=== PATIENT | male | born 1985 | race American Indian/Alaskan Native ===

== ENCOUNTER 2020-05-01 18:58 | Emergency (ER) | payer OTHER ==
[2020-05-02] MEDS ORDERED: SUCRALFATE 1 GM/10 ML ORAL LIQD PO ONE (07:07)
[2020-05-02] MEDS ORDERED: FAMOTIDINE 20 MG TAB PO ONE (07:07)
[2020-05-02] MEDS ORDERED: ACETAMINOPHEN 325 MG TAB PO ONE (07:07)
--- NOTE | 2020-05-02 07:08 | Emergency Department Report ---
ED Chest Pain HPI - General Chief Complaint: Chest Pain Stated Complaint: TIGHTNESS LEFT JAW, CHEST PAIN PUI?: No Time Seen by Provider: 05/02/20 06:32 Source: patient, RN notes reviewed, old records reviewed Mode of arrival: Ambulatory Limitations: No Limitations - History of Present Illness Initial Comments: Primary care doctor: [facility] gutierrez The patient is a 35-year-old gentleman. I have evaluated this patient in the past. He denies chronic medical conditions. I have evaluated this patient in the past for chest pain. Patient has been having chest pain on and off since February. The patient presents to the ER today with a complaint of recurrent chest pain. The chest pain is central, right-sided and left-sided. It did not radiate to the back, arms or neck. To me, the patient denies exertional shortness of breath, vomiting, diaphoresis, DVT and pulmonary embolism risk factors. He reports that over the past week he has been having this intermittent discomfort. However, he has been having this discomfort subacutely since February. This particular episode started at 630 yesterday evening, and has been intermitt ent. However, he has been having this pain basically every day. He denies headache, neck pain, abdominal pain, vomiting, diaphoresis, urinary symptoms, vomiting blood, defecating blood, extremity weakness and or numbness. In the emergency room, he was treated supportively and symptomatically felt improved. He states that he has followed up with [facility], however, they have not referred him to an outpatient cake former. He did a video evaluation last night with [facility] physician, and was instructed to come to the ER for further evaluation MD Complaint: chest pain -: Gradual, hour(s), days(s), week(s) Onset: during rest Pain Location: substernal, left chest, right chest Pain Radiation: none Severity scale (0 -10): 3 Quality: aching Consistency: intermittent Improves With: nothing Worsens With: nothing Aspirin use within the Past 7 Days: (0) No - Related Data Previous Rx's Medication Instructions Recorded Last Taken Type Acetaminophen [Non-Aspirin Extra 500 mg PO Q6HR PRN #30 tablet 05/02/20 Unknown Rx Strength] Famotidine [Pepcid] 20 mg PO BID #60 tablet 05/02/20 Unknown Rx Allergies Allergy/AdvReac Type Severity Reaction Status Date / Time No Known Allergies Allergy Unverified 02/20/20 00:19 Heart Score - HEART Score History: Slightly suspicious EKG: Normal Age: < 45 Risk factors: 1-2 risk factors Troponin: < normal limit HEART Score: 1 - Critical Actions Critical Actions: 0-3 pts:0.9-1.7%risk of adverse cardiac event.Candidate for discharge ED Review of Systems ROS: Stated complaint: TIGHTNESS LEFT JAW, CHEST PAIN Other details as noted in HPI Constitutional: denies: fever, malaise, weakness Eyes: denies: eye discharge ENT: denies: congestion Respiratory: denies: shortness of breath Cardiovascular: chest pain Gastrointestinal: abdominal pain. denies: nausea, vomiting, hematemesis, melena, hematochezia Genitourinary: denies: dysuria Musculoskeletal: denies: back pain Skin: denies: lesions Neurological: denies: weakness Hematological/Lymphatic: denies: easy bleeding ED Past Medical Hx - Past Medical History Previous Medical History?: Yes Hx Diabetes: Yes (pre dm) - Surgical History Past Surgical History?: No - Social History Smoking Status: Never Smoker Substance Use Type: None - Medications Home Medications: Home Medications Medication Instructions Recorded Confirmed Last Taken Type Acetaminophen [Non-Aspirin Extra 500 mg PO Q6HR PRN #30 tablet 05/02/20 Unknown Rx Strength] Famotidine [Pepcid] 20 mg PO BID #60 tablet 05/02/20 Unknown Rx ED Physical Exam - General Limitations: No Limitations General appearance: alert, in no apparent distress, obese - Head Head exam: Present: atraumatic, normocephalic - Eye Eye exam: Present: normal appearance, EOMI. Absent: nystagmus - ENT ENT exam: Present: normal exam, normal orophraynx, mucous membranes moist, normal external ear exam - Neck Neck exam: Present: normal inspection, full ROM. Absent: tenderness, meningismus - Respiratory Respiratory exam: Present: normal lung sounds bilaterally. Absent: respiratory distress, wheezes, rales, rhonchi, stridor, decreased breath sounds - Cardiovascular Cardiovascular Exam: Present: regular rate, normal rhythm, normal heart sounds. Absent: bradycardia, tachycardia, irregular rhythm, systolic murmur, diastolic murmur, rubs, gallop - GI/Abdominal GI/Abdominal exam: Present: soft. Absent: distended, tenderness, guarding, rebound, rigid, pulsatile mass - Rectal Rectal exam: Present: deferred - Extremities Exam Extremities exam: Present: normal inspection, full ROM, other (2+ pulses noted in the bilateral upper and lower extremities. There is no palpable cord. negative Homans sign. Muscular compartments are soft. The pelvis is stable.). Absent: pedal edema, calf tenderness - Back Exam Back exam: Present: normal inspection, full ROM. Absent: tenderness, CVA tenderness (R), CVA tenderness (L), paraspinal tenderness, vertebral tenderness - Neurological Exam Neurological exam: Present: alert, normal gait, other (No facial droop. Tongue midline. Extraocular movements intact bilaterally. Facial sensation intact to light touch in V1, V2, V3 distribution bilaterally. 5 and a 5 strength in 4 extremities. Sensation intact to light touch in 4 extremities.). Absent: motor sensory deficit - Psychiatric Psychiatric exam: Present: normal affect, normal mood, anxious - Skin Skin exam: Present: warm, dry, intact, normal color. Absent: rash ED Course Vital Signs 05/01/20 05/02/20 05/02/20 19:00 06:40 08:28 Temperature 99.1 F Pulse Rate 110 H 86 62 Respiratory 18 18 22 Rate Blood Pressure 166/109 Blood Pressure 142/81 139/92 [Left] O2 Sat by Pulse 97 100 98 Oximetry - Reevaluation(s) Reevaluation #1: 05/02/20 08:48 Discussed with [facility] physician, Dr. Kumar, who states they will have the patient follow-up as an outpatient to have a stress test arranged BRET score - Bret Score Age > 65: (0) No Aspirin use within the Past 7 Days: (0) No 3 or more CAD Risk Factors: (0) No 2 or more Angina events in past 24 hrs: (0) No Known CAD with more than 50% Stenosis: (0) No Elevated Cardiac Markers: (0) No ST Deviation Greater than 0.5mm: (0) No BRET Score: 0 ED Medical Decision Making - Lab Data Result diagrams: 05/02/20 07:23 05/02/20 07:23 Vital Signs 05/01/20 05/02/20 05/02/20 19:00 06:40 08:28 Temperature 99.1 F Pulse Rate 110 H 86 62 Respiratory 18 18 22 Rate Blood Pressure 166/109 Blood Pressure 142/81 139/92 [Left] O2 Sat by Pulse 97 100 98 Oximetry Lab Results 05/02/20 05/02/20 05/02/20 Range/Units 07:23 07:23 07:23 Hgb 14.1 (11.8-15.2) gm/dl Hct 41.8 (35.5-45.6) % Plt Count 307 (140-440) K/mm3 PT 14.0 (12.2-14.9) Sec. INR 1.07 (0.87-1.13) Sodium 140 (137-145) mmol/L Potassium 4.1 (3.6-5.0) mmol/L Chloride 102.2 (98-107) mmol/L Carbon Dioxide 25 (22-30) mmol/L Anion Gap 17 mmol/L BUN 17 (9-20) mg/dL Creatinine 1.0 (0.8-1.3) mg/dL Estimated GFR > 60 ml/min BUN/Creatinine Ratio 17 % Glucose 103 H (75-100) mg/dL Calcium 9.6 (8.4-10.2) mg/dL Magnesium 2.30 (1.7-2.3) mg/dL Total Creatine Kinase 124 (55-170) units/L Troponin T < 0.010 (0.00-0.029) ng/mL - EKG Data -: EKG Interpreted by [facility] EKG shows normal: sinus rhythm, axis, intervals (QTC 444 mils), QRS complexes, ST-T waves Rate: normal - EKG Data When compared to previous EKG there are: no significant change Interpretation: normal EKG, unchanged when compared t (02/20/2020) - Radiology Data Radiology results: pending, report reviewed, image reviewed - Medical Decision Making Differential diagnosis, including but not limited to: GERD, gastritis, hiatal hernia, pneumonia, coronary artery disease Assessment and plan: 35-year-old gentleman with weeks and months of chest pain. Tachycardia resolved, he is currently afebrile, with reassuring vital signs, not currently tachycardic, tachypneic or hypoxic, he denies DVT and pulmonary embolism risk factors and is low risk by Wells criteria. Symptoms present for over 8 hours, days/weeks, troponin negative x1, therefore, as per the [employer] clinical policy, myocardial infarction may be ruled out with 1 set of enzymes/cardiac enzymes. Patient at low risk for major adverse cardiac event. Patient was treated supportively and symptomatically. Counseled patient that he is at low risk for major adverse cardiac event. As a courtesy, we will reach out to the [facility] and discussed that since they referred him here, he may benefit from diet and lifestyle modifications, avoidance of heavy and spicy foods, NSAID avoidance, etc., however, will discuss recommendations to have him follow-up with outpatient cardiology to complete a risk stratification, as it appears he has not done so at this time Critical care attestation.: If time is entered above; I have spent that time in minutes in the direct care of this critically ill patient, excluding procedure time. ED Disposition Clinical Impression: History of chest pain Disposition: DC-01 TO HOME OR SELFCARE Is pt being admited?: No Does the pt Need Aspirin: No Condition: Stable Additional Instructions: Avoid consumption of Motrin, ibuprofen, Naprosyn, Aleve, heavy and spicy foods, alcohol. Participate in physical activity/exercise, on a regular basis, as tolerated, recommend weight loss as tolerated, consumption of plenty of fiber, vegetables, and lean protein. Please follow-up with your primary care doctor or cake former within the next 3 to 5 days. Take the prescribed medications as needed and directed. In addition, please check your [facility] application on your smart phone device, an outpatient appointment should be set up for you shortly to have a stress test initiated/ordered. Return to the emergency room right away with new pain, worsening pain, migration of pain, projectile vomiting, change in mental status, confusion, inability to tolerate liquid feeds, new, worsened or different symptoms not present on the initial emergency room evaluation peer Prescriptions: Acetaminophen [Non-Aspirin Extra Strength] 500 mg PO Q6HR PRN #30 tablet PRN Reason: Pain , Severe (7-10) Famotidine [Pepcid] 20 mg PO BID #60 tablet Referrals: CALI MUNSON MD [Staff Physician] - 3-5 Days ORION CARCAMO MD [Staff Physician] - 3-5 Days
[2020-05-02 07:34] LABS: Hematocrit 41.8 % (35.5-45.6); Hemoglobin 14.1 gm/dl (11.8-15.2)
--- NOTE | 2020-05-02 07:38 | XRay Report ---
CHEST 2 VIEW INDICATION / CLINICAL INFORMATION: cp. COMPARISON: 02/20/2020 FINDINGS: SUPPORT DEVICES: None. HEART / MEDIASTINUM: No significant abnormality. LUNGS / PLEURA: No significant pulmonary or pleural abnormality. No pneumothorax. ADDITIONAL FINDINGS: No significant additional findings. IMPRESSION: 1. No acute findings. No interval change. Signer Name: Cait Dos Santos MD Signed: 05/02/2020 7:34 AM Workstation Name: [id number]
[2020-05-02 07:43] LABS: INR 1.07 (0.87-1.13)
[2020-05-02 08:03] LABS: BUN/Creatinine Ratio 17; Blood Urea Nitrogen 17 mg/dL (9-20); Calcium 9.6 mg/dL (8.4-10.2); Hemolysis Index 13
[2020-05-02 08:29] VITALS: BP 139/92
== END 2020-05-02 09:01 | disposition home or self-care (01) ==
LOC: ED 18:58
DX: R07.89 Other chest pain (principal); E11.9 Type 2 diabetes mellitus without complications
CPT/HCPCS: 36415; 71046; 80048; 82550; 83735; 84484; 85014; 85018; 85049; 85610; 93005